=== PATIENT | female | born 1975 | race Caucasian/White ===

== ENCOUNTER → 2018-04-28 | Outpatient (CLI) | payer OTHER ==
[~2018-04-28] MED LIST: ACYC200 PO; ACYC400 PO; ALBU90OI; ALBU90OI INH; ALBU90OI6 INH; ALBU90OI61 INH; AMOCLA875 PO; ARIP10 PO; ARIP15; ARIP30 PO; ARIPIPRAZOLE; AZIT250 PO; Abilify5 MG PO; Amoxicillin500 MG PO; Augmentin 875-1 EACH PO; BCPs; CEPH500 PO; CLIN150 PO; CLON.5 PO; CYCL10 PO; DESV50 PO; Desyrel150 MG PO; FEXO60 PO; FLUSAL5005 INH; FLUT110OIA INH; GENT15TO TOP; HYDACE5 PO; IBUP800 PO; MAGCIT300 PO; MAGIC MOUTHWASH; MIRT15 PO; NAPR500 PO; NICO2 PO; NICO21TP TOP; NICORETTE4 MG BC; NITR100CA PO; Naprosyn500 MG PO; OLAN2.5 PO; OLAN5 PO; OXYC5 PO; PENVK500 PO; PHENA200 PO; POLTRIOPSO OU; PRED20 PO; PROM25 PO; Permethrin60 GM TP; QUET100; QUET100 PO; QUET25 PO; RANI150; SPIRIVA; SULTRIDS PO; TIOT18 INH; TRAM50 PO; TRAZ100 PO; TRAZ150T57 PO; VENL25 PO; VENL75 PO; VENL75ER PO; VENLAFAXINE HCL PO; Veetids 500500 MG PO; Verotin-Gr Cap1 EACH PO; Vistaril50 MG PO
== END ==
LOC: LAB SHORT 11:23 → LAB 11:23
DX: L02.31 Cutaneous abscess of buttock (principal)
CPT/HCPCS: 87070; 87077; 87147; 87186; 87205

== ENCOUNTER 2019-04-14 18:53 | Emergency (ER) | payer OTHER ==
[~2019-04-14] VITALS: Ht 160 cm; Wt 47.6 kg
[2019-04-14 20:19] LABS: Source, Urine Clean Catch
[2019-04-14 20:24] LABS: Bilirubin, Urine Neg (Neg); Blood, Urine Neg (Neg); Glucose Qualitative, Urine Neg (Neg); Ketones, Urine Neg (Neg); Leukocyte Esterase, Urine Neg (Neg); Nitrite, Urine Neg (Neg); Protein, Urine Neg (Neg); Specific Gravity, Urine 1.005 (1.003-1.022); Urobilinogen, Urine NORM (Normal); pH, Urine 6.5 (5.0-8.0)
[2019-04-14 20:30] LABS: Appearance, Urine Clear (Clear); Color, Urine Pale Yellow (P-Yellow)
== END 2019-04-14 21:04 | disposition home or self-care (01) ==
LOC: ER 18:53
PROVIDERS: Physician Assistant
DX: R10.9 Unspecified abdominal pain (principal); J44.9 Chronic obstructive pulmonary disease, unspecified; F41.9 Anxiety disorder, unspecified; F32.9 Major depressive disorder, single episode, unspecified; F17.210 Nicotine dependence, cigarettes, uncomplicated; Z79.899 Other long term (current) drug therapy
CPT/HCPCS: 81003; 99284

== ENCOUNTER 2019-06-30 17:33 | Emergency (ER) | payer OTHER ==
[~2019-06-30] VITALS: Ht 162.6 cm; Wt 47.6 kg
[2019-06-30] MEDS ORDERED: VENLAFAXINE PO (17:48)
[2019-06-30] MEDS ORDERED: IBUP400 PO (17:48)
[2019-06-30] MEDS ORDERED: ACET500 PO (17:49)
[2019-06-30] MEDS ORDERED: CLIN300 PO (17:50)
[2019-06-30 18:34] LABS: BASOPHILS ABSOLUTE AUTO 0.04 K/mm3 (0.00-0.23); BASOPHILS PERCENT AUTO 1 % (0-2); EOSINOPHILS ABSOLUTE AUTO 0.13 K/mm3 (0.00-0.68); EOSINOPHILS PERCENT AUTO 2 % (0-6); Hematocrit 46.8 % (33.0-51.0); Hemoglobin 15.6 g/dL (11.5-16.0); IMMATURE GRAN ABSOLUTE AUTO 0.02 K/mm3 (0.00-0.10); IMMATURE GRAN PERCENT AUTO 0 % (0-1); LYMPHOCYTES ABSOLUTE AUTO 1.86 K/mm3 (0.84-5.20); LYMPHOCYTES PERCENT AUTO 27 % (21-46); MONOCYTES ABSOLUTE AUTO 0.74 K/mm3 (0.16-1.47); MONOCYTES PERCENT AUTO 11 % (4-13); Mean Corpuscular HGB 32.4 pg (26.0-34.0); Mean Corpuscular HGB Conc 33.3 g/dL (31.5-36.5); Mean Corpuscular Volume 97 fL (80-100); Mean Platelet Volume 10.4 fL (9.1-12.4); NEUTROPHILS ABSOLUTE AUTO 4.15 K/mm3 (1.96-9.15); NEUTROPHILS PERCENT AUTO 60 % (41-73); Platelet Count 241 K/mm3 (150-400); RDW Standard Deviation 43.7 fL (35.1-46.3); Red Blood Cell Count 4.81 M/mm3 (3.80-5.20); White Blood Cell Count 6.94 K/mm3 (4.00-11.30)
[2019-06-30 18:49] LABS: Alanine Aminotransfer (ALT/SGP 21 U/L (12-78); Albumin, Blood 4.4 g/dL (3.4-5.0); Albumin/Globulin Ratio 1.3 (0.8-1.8); Alk Phos 53 U/L (50-136); Anion Gap 4 mmol/L (6-16); Aspartate Aminotrans (AST/SGOT 14 U/L (12-37); Bilirubin, Total 0.4 mg/dL (0.1-1.0); Blood Urea Nitrogen 8 mg/dL (8-24); Bun/Creatinine Ratio 11.3 (12.0-20.0); CO2, Blood 28 mmol/L (21-32); Calcium, Blood 9.4 mg/dL (8.5-10.1); Chloride, Blood 107 mmol/L (98-108); Creatinine, Blood 0.71 mg/dL (0.40-1.00); Globulin, Blood 3.3 g/dL (2.2-4.0); Glomerular Filtration Rate >60 (60-); Glucose, Blood 115 mg/dL (70-99); Magnesium, Blood 2.4 mg/dL (1.6-2.4); Potassium, Blood 3.5 mmol/L (3.5-5.5); Sodium, Blood 139 mmol/L (136-145); Total Protein, Blood 7.7 g/dL (6.4-8.2)
[2019-06-30] MEDS ORDERED: Lomotil Tablet1 EACH PO (19:17)
== END 2019-06-30 19:27 | disposition home or self-care (01) ==
LOC: ER 17:33
PROVIDERS: Emergency Medicine
DX: E86.0 Dehydration (principal); R19.7 Diarrhea, unspecified; F32.9 Major depressive disorder, single episode, unspecified; J45.909 Unspecified asthma, uncomplicated; Z79.899 Other long term (current) drug therapy
CPT/HCPCS: 36415; 80053; 83735; 85025; 96360; 99283-25; J7030

== ENCOUNTER 2020-09-02 14:31 | Emergency (ER) | payer OTHER ==
[~2020-09-02] VITALS: Ht 160 cm; Wt 54.4 kg
[~2020-09-02 14:31] MED LIST changes: +ACET500 PO; +CLIN300 PO; +IBUP400 PO; +Lomotil Tablet1 EACH PO; +VENLAFAXINE PO
[2020-09-02 14:58] LABS: BASOPHILS ABSOLUTE AUTO 0.03 K/mm3 (0.00-0.23); BASOPHILS PERCENT AUTO 0 % (0-2); EOSINOPHILS ABSOLUTE AUTO 0.24 K/mm3 (0.00-0.68); EOSINOPHILS PERCENT AUTO 3 % (0-6); Hematocrit 42.8 % (33.0-51.0); Hemoglobin 14.1 g/dL (11.5-16.0); IMMATURE GRAN ABSOLUTE AUTO 0.02 K/mm3 (0.00-0.10); IMMATURE GRAN PERCENT AUTO 0 % (0-1); LYMPHOCYTES ABSOLUTE AUTO 1.75 K/mm3 (0.84-5.20); LYMPHOCYTES PERCENT AUTO 23 % (21-46); MONOCYTES ABSOLUTE AUTO 0.84 K/mm3 (0.16-1.47); MONOCYTES PERCENT AUTO 11 % (4-13); Mean Corpuscular HGB 31.8 pg (26.0-34.0); Mean Corpuscular HGB Conc 32.9 g/dL (31.5-36.5); Mean Corpuscular Volume 97 fL (80-100); Mean Platelet Volume 10.2 fL (9.1-12.4); NEUTROPHILS ABSOLUTE AUTO 4.79 K/mm3 (1.96-9.15); NEUTROPHILS PERCENT AUTO 62 % (41-73); Platelet Count 282 K/mm3 (150-400); RDW Coefficient Variation 12.9 % (11.7-14.2); RDW Standard Deviation 46.2 fL (35.1-46.3); Red Blood Cell Count 4.43 M/mm3 (3.80-5.20); White Blood Cell Count 7.67 K/mm3 (4.00-11.30)
[2020-09-02 15:19] LABS: Alanine Aminotransfer (ALT/SGP 29 U/L (12-78); Albumin, Blood 3.8 g/dL (3.4-5.0); Albumin/Globulin Ratio 1.1 (0.8-1.8); Alk Phos 57 U/L (50-136); Anion Gap 7 mmol/L (6-16); Aspartate Aminotrans (AST/SGOT 29 U/L (12-37); Bilirubin, Total 0.5 mg/dL (0.1-1.0); Blood Urea Nitrogen 11 mg/dL (8-24); Bun/Creatinine Ratio 16.2 (12.0-20.0); CO2, Blood 25 mmol/L (21-32); Calcium, Blood 8.8 mg/dL (8.5-10.1); Chloride, Blood 105 mmol/L (98-108); Creatinine, Blood 0.68 mg/dL (0.40-1.00); Globulin, Blood 3.4 g/dL (2.2-4.0); Glomerular Filtration Rate >60 (60-); Glucose, Blood 131 mg/dL (70-99); Potassium, Blood 3.7 mmol/L (3.5-5.5); Sodium, Blood 137 mmol/L (136-145); Total Protein, Blood 7.2 g/dL (6.4-8.2)
== END 2020-09-02 16:13 | disposition left against medical advice (07) ==
LOC: ER 14:31
PROVIDERS: Physician Assistant
DX: R60.0 Localized edema (principal); R21 Rash and other nonspecific skin eruption; R52 Pain, unspecified; Z53.21 Procedure and treatment not carried out due to patient leaving prior to being seen by health care provider
CPT/HCPCS: 36415; 80053; 85025; 99283

== ENCOUNTER 2020-12-03 11:19 | Emergency (ER) | payer OTHER ==
[~2020-12-03] VITALS: Ht 160 cm; Wt 57.1 kg
[2020-12-03] MEDS ORDERED: PSEUDOEPHEDRINE30 M1 PO (13:16)
== END 2020-12-03 13:33 | disposition home or self-care (01) ==
LOC: ER 11:19
DX: R09.81 Nasal congestion (principal); F15.10 Other stimulant abuse, uncomplicated; J44.9 Chronic obstructive pulmonary disease, unspecified; F17.210 Nicotine dependence, cigarettes, uncomplicated; Z79.899 Other long term (current) drug therapy
CPT/HCPCS: 99283

== ENCOUNTER 2020-12-05 04:42 | Emergency (ER) | payer OTHER ==
[~2020-12-05] VITALS: Ht 160 cm; Wt 57.1 kg
[~2020-12-05 04:42] MED LIST changes: +PSEUDOEPHEDRINE30 M1 PO
== END 2020-12-05 06:34 | disposition left against medical advice (07) ==
LOC: ER 04:42
DX: Z53.21 Procedure and treatment not carried out due to patient leaving prior to being seen by health care provider (principal)

== ENCOUNTER 2021-02-27 17:58 | Emergency (ER) | payer OTHER ==
[~2021-02-27] VITALS: Ht 160 cm; Wt 52.2 kg
[2021-02-27] MEDS ORDERED: IBUP600 PO (20:50)
[2021-02-27] MEDS ORDERED: CYCL10 PO (20:50)
== END 2021-02-27 20:56 | disposition home or self-care (01) ==
LOC: ER 17:58
DX: M54.2 Cervicalgia (principal); G89.29 Other chronic pain; J44.9 Chronic obstructive pulmonary disease, unspecified; F17.210 Nicotine dependence, cigarettes, uncomplicated; Z88.8 Allergy status to other drugs, medicaments and biological substances; Z79.899 Other long term (current) drug therapy
CPT/HCPCS: 96372; 99283-25; A9270; J1885

== ENCOUNTER → 2021-04-17 | Outpatient (CLI) | payer OTHER ==
[~2021-04-17] MED LIST changes: +IBUP600 PO
== END | disposition home or self-care (01) ==
LOC: LAB SHORT 16:05
DX: N39.0 Urinary tract infection, site not specified (principal)
CPT/HCPCS: 87086